=== PATIENT | female | born 1985 | race Caucasian/White ===

== ENCOUNTER 2017-01-01 11:03 | Emergency (ER) | payer MEDICAID ==
[~2017-01-01] VITALS: Wt 56.5 kg
[~2017-01-01 11:03] MED LIST: GLIP-95 PO
[2017-01-01] MEDS ORDERED: HC1C30 TOP (12:05)
[2017-01-01] MEDS ORDERED: BEN25 PO (12:05)
--- NOTE | 2017-01-01 12:12 | ERD ---
ER Documentation Chief Complaint Date/Time DATE: 01/01/17 TIME: 12:10 Chief Complaint RASH ON FACE, NECK, ONSET 2 DAYS, NO SOB HPI 31-year-old female complains of a pruritic rash that is on her face and neck that started 2 days ago. She states that it is localized only, without any shortness of breath or lip swelling. She denies any new foods, medications lotions or creams or rubs. She denies any trouble breathing with this. She did try taking Benadryl yesterday one time. ROS All systems reviewed and are negative except as per history of present illness. Medications Home Meds Active Scripts Hydrocortisone* Topical (Hydrocortisone* Topical) 1%-28.35 Gm Cream..g., 1 APPLIC TOP Q6 Y for ITCHING, #1 TUB Prov:RAJAN KIMBLE PA-C 01/01/17 Diphenhydramine Hcl* (Benadryl*) 25 Mg Cap, 25 MG PO Q6, #30 CAP Prov:RAJAN KIMBLE PA-C 01/01/17 Glipizide* (Glipizide*) 10 Mg Tablet, 10 MG PO AC BREAKFAST for 30 Days, TAB Prov:DIPAK WEIR MD 10/21/14 Allergies Allergies: Coded Allergies: No Known Allergies (Verified Allergy, Unknown, 10/20/14) PMhx/Soc History of Surgery: Yes (C/S x2) Anesthesia Reaction: No Hx Neurological Disorder: No Hx Respiratory Disorders: No Hx Cardiac Disorders: No Hx Psychiatric Problems: No Hx Miscellaneous Medical Probl: No Hx Alcohol Use: No Hx Substance Use: No Hx Tobacco Use: No Smoking Status: Never smoker Physical Exam Vitals Vital Signs Date Time Temp Pulse Resp B/P Pulse Ox O2 Delivery O2 Flow Rate FiO2 01/01/17 11:09 97.8 90 18 129/79 98 Physical Exam General: Well-developed, well-nourished. The patient appears in no acute distress. HEENT: Head is normocephalic, atraumatic. No scleral icterus. Pupils are equal , round, and reactive. Oral mucous membranes are moist. No pharyngeal erythema. No angioedema Neck: Supple. Nontender. Lungs: Clear to auscultation. Normal air movement. Heart: Regular rate and rhythm. S1 and S2 are normal. No murmurs, gallops, or rubs. Abdomen: Nondistended. Extremities: No clubbing or cyanosis. Normal pulses. Moving extremities x 4. No weakness. Neurologic: Alert and oriented 3. No focal deficits. Skin: Slight, superficial erythema, excoriations in the anterior chest, macular rash, no papules, no vesicles. Procedures/MDM 31-year-old female presents with dermatitis, differentials include allergic reaction versus contact dermatitis versus eczema. The localization of the rash , is less concerning, there is no infectious etiology at this time. Patient will be treated for eczema versus contact dermatitis. Departure Diagnosis: Primary Impression: Dermatitis Condition: Good Patient Instructions: Atopic Dermatitis (Eczema) Additional Instructions: Llame al doctor MAANA y yenifer odilia JUANCARLOS PARA DENTRO DE 1-2 JAQUEZ.Dgale a la secretaria que nosotros le instruimos hacer esta juancarlos.Avise o llame si cardenas condicin se empeora antes de la juancarlos. Regresa aqui si peor o no mejor. RAJAN KIMBLE PA-C Jan 01, 2017 12:12
== END 2017-01-01 12:56 | disposition home or self-care (01) ==
LOC: FTE 11:03
DX: L30.9 Dermatitis, unspecified (principal); E11.9 Type 2 diabetes mellitus without complications; Z79.84 Long term (current) use of oral hypoglycemic drugs
CPT/HCPCS: 99283

== ENCOUNTER 2017-08-24 08:54 | Emergency (ER) | payer MEDICAID ==
[~2017-08-24] VITALS: Ht 157.5 cm; Wt 57.4 kg
[~2017-08-24 08:54] MED LIST changes: +BEN25 PO; +HC1C30 TOP
[2017-08-24 08:57] VITALS: Ht 157.5 cm; Wt 57.4 kg
--- NOTE | 2017-08-24 09:41 | ERD ---
ER Documentation Chief Complaint Chief Complaint MID ABD PAIN RADIATING TO BACK X 1 DAY ROS All systems reviewed and are negative except as per history of present illness. Medications Home Meds Active Scripts Hydrocortisone* Topical (Hydrocortisone* Topical) 1%-28.35 Gm Cream..g., 1 APPLIC TOP Q6 Y for ITCHING, #1 TUB Prov:RAJAN KIMBLE PA-C 01/01/17 Diphenhydramine Hcl* (Benadryl*) 25 Mg Cap, 25 MG PO Q6, #30 CAP Prov:RAJAN KIMBLE PA-C 01/01/17 Glipizide* (Glipizide*) 10 Mg Tablet, 10 MG PO AC BREAKFAST for 30 Days, TAB Prov:DIPAK WEIR MD 10/21/14 Allergies Allergies: Coded Allergies: No Known Allergies (Verified Allergy, Unknown, 10/20/14) PMhx/Soc History of Surgery: Yes (C/S x2) Anesthesia Reaction: No Hx Neurological Disorder: No Hx Respiratory Disorders: No Hx Cardiac Disorders: No Hx Psychiatric Problems: No Hx Miscellaneous Medical Probl: No Hx Alcohol Use: No Hx Substance Use: No Hx Tobacco Use: No Physical Exam Vitals Vital Signs Date Time Temp Pulse Resp B/P Pulse Ox O2 Delivery O2 Flow Rate FiO2 08/24/17 08:57 98.5 95 18 120/70 99 Physical Exam Const: [] Head: Atraumatic Eyes: Normal Conjunctiva ENT: Normal External Ears, Nose and Mouth. Neck: Full range of motion..~ No meningismus. Resp: Clear to auscultation bilaterally Cardio: Regular rate and rhythm, no murmurs Abd: Soft, non tender, non distended. Normal bowel sounds Skin: No petechiae or rashes Back: No midline or flank tenderness Ext: No cyanosis, or edema Neur: Awake and alert Psych: Normal Mood and Affect Results 24 hrs Current Medications Medications (Trade) Dose Ordered Sig/Heath Route PRN Reason Start Time Stop Time Status Last Admin Dose Admin Morphine Sulfate (morphine) 4 mg ONCE STAT IV 08/24/17 09:48 08/24/17 09:51 DC Ondansetron HCl (Zofran Inj) 4 mg ONCE STAT IV 08/24/17 09:48 08/24/17 09:51 DC Famotidine (Pepcid) 20 mg ONCE STAT PO 08/24/17 09:48 08/24/17 09:51 DC Departure Condition: Stable BALA DELATORRE MD Aug 24, 2017 09:41
[2017-08-24] MEDS ORDERED: ONDANSETRON 4 MG INJ IV STA (09:48)
[2017-08-24] MEDS ORDERED: FAMOTIDINE 20 MG TAB PO STA (09:48)
[2017-08-24] MEDS ORDERED: morphine 4 MG/ML VIAL IV STA (09:48)
[2017-08-24 10:30] LABS: BASOPHILS % 0.3 % (0.0-2.0); EOSINOPHILS % 0.2 % (0.0-7.0); HEMATOCRIT 39.1 % (37.0-47.0); HEMOGLOBIN 12.8 g/dl (12.0-16.0); LYMPHOCYTES # 1.3 10^3/ul (0.8-2.9); LYMPHOCYTES % 8.2 % (15.0-51.0); MEAN CORPUSCULAR HEMOGLOBIN 25.4 pg (29.0-33.0); MEAN CORPUSCULAR HGB CONC 32.7 g/dl (32.0-37.0); MEAN CORPUSCULAR VOLUME 77.7 fl (82.0-101.0); MEAN PLATELET VOLUME 9.5 fl (7.4-10.4); MONOCYTE # 0.5 10^3/ul (0.3-0.9); MONOCYTES % 3.3 % (0.0-11.0); NEUTROPHILS % 87.5 % (39.0-77.0); PLATELET COUNT 320 10^3/UL (140-415); RED BLOOD COUNT 5.03 10^6/ul (4.20-5.40)
[2017-08-24 10:36] LABS: ADD UMIC YES; UR ASCORBIC ACID NEGATIVE (NEGATIVE); UR BILIRUBIN (Dip) NEGATIVE (NEGATIVE); UR BLOOD (Dip) 3+ mg/dL (NEGATIVE); UR CLARITY CLEAR (CLEAR); UR COLOR YELLOW (YELLOW); UR GLUCOSE (Dip) 2+ mg/dL (NEGATIVE); UR KETONES (Dip) TRACE mg/dL (NEGATIVE); UR LEUKOCYTE ESTERASE (Dip) NEGATIVE Leu/ul (NEGATIVE); UR MUCUS FEW /HPF (NONE SEEN); UR NITRITE (Dip) NEGATIVE (NEGATIVE); UR RBC 0 /HPF (0-5); UR TOTAL PROTEIN (Dip) NEGATIVE (NEGATIVE); UR UROBILINOGEN (Dip) NEGATIVE (NEGATIVE)
[2017-08-24 11:03] LABS: ALBUMIN 4.6 g/dl (3.3-4.9); ALBUMIN/GLOBULIN RATIO 1.31; BILIRUBIN,INDIRECT 0.3 mg/dl (0-1.1); BILIRUBIN,TOTAL 0.3 mg/dl (0.2-1.3); CALCIUM 9.2 mg/dl (8.4-10.2); CREATININE 0.57 mg/dl (0.44-1.00); POTASSIUM 3.9 mmol/L (3.5-5.1); TOTAL PROTEIN 8.1 g/dl (6.1-8.1)
--- NOTE | 2017-08-24 11:08 | RADRPT ---
PROCEDURE: Abdominal ultrasound CLINICAL INDICATION: Right upper quadrant abdominal pain TECHNIQUE: Multiple sagittal oblique and transverse real time images were obtained of the abdomen. COMPARISON: None FINDINGS: The gallbladder is distended with inhomogeneous extensive increased echogenicity consistent with gra alistair debris and likely tiny gallstones. Note however that the gallbladder wall is not thickened measu ring 1.32 mm. No evidence of pericholecystic fluid. The common bile duct is normal limits in size me asuring 4.62 mm. No evidence of intrahepatic biliary ductal dilation. The liver is mildly enlarged w ith a maximal sagittal mention of 15.22 cm. The hepato pedal flow within the portal vein. There is i ncreased liver parenchymal echogenicity consistent with fatty infiltration. No focal hepatic lesions . The right kidney is normal in size configuration without calcified calculi, hydronephrosis or intr a renal mass. Those portions of the pancreas visualized are unremarkable. IMPRESSION: 1. Distended gallbladder with diffuse inhomogeneous echogenicity within the lumen consistent with g ravel, debris and probable tiny gallstones. Negative for gallbladder wall thickening or pericholecys tic fluid. 2. No evidence biliary ductal dilation. 3. Mild hepatomegaly with fatty infiltration. 4. Negative right kidney. RPTAT:AAJJ Physician Patience Date Time Electronically viewed and signed by Physician Patience on 08/24/2017 11:08 /
--- NOTE | 2017-08-24 11:15 | ERD ---
ER Documentation Chief Complaint Chief Complaint MID ABD PAIN RADIATING TO BACK X 1 DAY HPI This is a 32-year-old female who presents emergency department today complaining of abdominal pain that goes around her back that started last night. States she took ibuprofen. States that yesterday she had a little bit of diarrhea. Denies any fevers or chills. States she is nauseated and has vomiting. ROS All systems reviewed and are negative except as per history of present illness. Medications Home Meds Active Scripts Dicyclomine Hcl* (Bentyl*) 10 Mg Capsule, 10 MG PO QID, #20 CAP Prov:NICK LIM PA-C 08/24/17 Ondansetron Hcl* (Zofran*) 4 Mg Tablet, 4 MG PO Q6H for NAUSEA AND/OR VOMITING, #30 TAB Prov:NICK LIM PA-C 08/24/17 Famotidine* (Pepcid*) 20 Mg Tablet, 20 MG PO BID for 10 Days, TAB Prov:NICK LIM PA-C 08/24/17 Naproxen* (Naprosyn*) 500 Mg Tablet, 500 MG PO BID Y for PAIN AND/OR INFLAMMATION, #30 TAB Prov:NICK LIM PA-C 08/24/17 Hydrocodone/Acetaminophen ([place] 5-325 Tablet) 1 Each Tablet, 1 TAB PO Q6H Y for PAIN, #10 TAB Prov:NICK LIM PA-C 08/24/17 Hydrocortisone* Topical (Hydrocortisone* Topical) 1%-28.35 Gm Cream..g., 1 APPLIC TOP Q6 Y for ITCHING, #1 TUB Prov:RAJAN KIMBLE PA-C 01/01/17 Diphenhydramine Hcl* (Benadryl*) 25 Mg Cap, 25 MG PO Q6, #30 CAP Prov:RAJAN KIMBLE PA-C 01/01/17 Glipizide* (Glipizide*) 10 Mg Tablet, 10 MG PO AC BREAKFAST for 30 Days, TAB Prov:DIPAK WEIR MD 10/21/14 Allergies Allergies: Coded Allergies: No Known Allergies (Verified Allergy, Unknown, 10/20/14) PMhx/Soc History of Surgery: Yes (C/S x2) Anesthesia Reaction: No Hx Neurological Disorder: No Hx Respiratory Disorders: No Hx Cardiac Disorders: No Hx Psychiatric Problems: No Hx Miscellaneous Medical Probl: No Hx Alcohol Use: No Hx Substance Use: No Hx Tobacco Use: No Physical Exam Vitals Vital Signs Date Time Temp Pulse Resp B/P Pulse Ox O2 Delivery O2 Flow Rate FiO2 08/24/17 08:57 98.5 95 18 120/70 99 Physical Exam Const: NAD Head: Atraumatic Eyes: Normal Conjunctiva ENT: Normal External Ears, Nose and Mouth. Neck: Full range of motion..~ No meningismus. Resp: Clear to auscultation bilaterally Cardio: Regular rate and rhythm, no murmurs Abd: Soft, epigastric, right upper quadrant, non distended. Normal bowel sounds no lower abdominal pain. No tenderness at McBurney's Skin: No petechiae or rashes Back: No midline or flank tenderness Ext: No cyanosis, or edema Neur: Awake and alert Psych: Normal Mood and Affect Result Diagram: 08/24/17 1012 08/24/17 1012 Results 24 hrs Laboratory Tests Test 08/24/17 10:10 08/24/17 10:12 Urine Color YELLOW Urine Clarity CLEAR Urine pH 5.0 Urine Specific [place] 1.010 Urine Ketones TRACEmg/dL Urine Nitrite NEGATIVEmg/dL Urine Bilirubin NEGATIVEmg/dL Urine Urobilinogen NEGATIVEmg/dL Urine Leukocyte Esterase NEGATIVELeu/ul Urine Microscopic RBC 0/HPF Urine Microscopic WBC 1/HPF Urine Mucus FEW/HPF Urine Hemoglobin 3+mg/dL Urine Glucose 2+mg/dL Urine Total Protein NEGATIVEmg/dl White Blood Count 16.010^3/ul Red Blood Count 5.0310^6/ul Hemoglobin 12.8g/dl Hematocrit 39.1% Mean Corpuscular Volume 77.7fl Mean Corpuscular Hemoglobin 25.4pg Mean Corpuscular Hemoglobin Concent 32.7g/dl Red Cell Distribution Width 13.0% Platelet Count 56116^3/UL Mean Platelet Volume 9.5fl Neutrophils % 87.5% Lymphocytes % 8.2% Monocytes % 3.3% Eosinophils % 0.2% Basophils % 0.3% Nucleated Red Blood Cells % 0.0/100WBC Neutrophils # 14.010^3/ul Lymphocytes # 1.310^3/ul Monocytes # 0.510^3/ul Eosinophils # 0.010^3/ul Basophils # 0.010^3/ul Nucleated Red Blood Cells # 0.010^3/ul Sodium Level 141mmol/L Potassium Level 3.9mmol/L Chloride Level 102mmol/L Carbon Dioxide Level 26mmol/L Anion Gap 17 Blood Urea Nitrogen 10mg/dl Creatinine 0.57mg/dl Glucose Level 234mg/dl Calcium Level 9.2mg/dl Total Bilirubin 0.3mg/dl Direct Bilirubin 0.00mg/dl Indirect Bilirubin 0.3mg/dl Aspartate Amino Transf (AST/SGOT) 22IU/L Alanine Aminotransferase (ALT/SGPT) 23IU/L Alkaline Phosphatase 91IU/L Total Protein 8.1g/dl Albumin 4.6g/dl Globulin 3.50g/dl Albumin/Globulin Ratio 1.31 Lipase 51U/L Current Medications Medications (Trade) Dose Ordered Sig/Heath Route PRN Reason Start Time Stop Time Status Last Admin Dose Admin Morphine Sulfate (morphine) 4 mg ONCE STAT IV 08/24/17 09:48 08/24/17 09:51 DC 08/24/17 10:19 Ondansetron HCl (Zofran Inj) 4 mg ONCE STAT IV 08/24/17 09:48 08/24/17 09:51 DC 08/24/17 10:19 Famotidine (Pepcid) 20 mg ONCE STAT PO 08/24/17 09:48 08/24/17 09:51 DC 08/24/17 10:19 DIAGNOSTIC IMAGING REPORT Patient: MAGGY CREWS : 1985 Age: 32 Sex: F [id number] DOS: 08/24/17 0000 Ordering MD: NICK LIM PA-C Location: [facility] Room/Bed: PROCEDURE: Abdominal ultrasound CLINICAL INDICATION: Right upper quadrant abdominal pain TECHNIQUE: Multiple sagittal oblique and transverse real time images were obtained of the abdomen. COMPARISON: None FINDINGS: The gallbladder is distended with inhomogeneous extensive increased echogenicity consistent with gravel debris and likely tiny gallstones. Note however that the gallbladder wall is not thickened measuring 1.32 mm. No evidence of pericholecystic fluid. The common bile duct is normal limits in size measuring 4.62 mm. No evidence of intrahepatic biliary ductal dilation. The liver is mildly enlarged with a maximal sagittal mention of 15.22 cm. The hepato pedal flow within the portal vein. There is increased liver parenchymal echogenicity consistent with fatty infiltration. No focal hepatic lesions. The right kidney is normal in size configuration without calcified calculi, hydronephrosis or intra renal mass. Those portions of the pancreas visualized are unremarkable. IMPRESSION: 1. Distended gallbladder with diffuse inhomogeneous echogenicity within the lumen consistent with gravel, debris and probable tiny gallstones. Negative for gallbladder wall thickening or pericholecystic fluid. 2. No evidence biliary ductal dilation. 3. Mild hepatomegaly with fatty infiltration. 4. Negative right kidney. RPTAT:AAJJ Physician Patience Date Time Electronically viewed and signed by Isabell Centeno Physician on 08/24/2017 11:08 BM/ CC: NICK LIM PA-C Procedures/[facility] This a 32-year-old female who presents the emergency department today complaining of abdominal pain that radiates around to her back. Patient is afebrile and otherwise well-appearing however on physical exam she has epigastric and right upper quadrant tenderness. Given this I did obtain laboratory workup as well as imaging. laboratory workup shows an elevated white blood cell count of 16. She is not anemic. Platelets are within normal limits. Electrolytes are within normal limits. Bicarb is within normal limits. Glucose is mildly elevated at 234. Liver enzymes are within normal limits. Lipase is within normal limits. UA 2+ glucose. Trace ketones. Negative for infection Urine test is negative Right upper quadrant ultrasound distended gallbladder with diffuse inhomogenous echogenicity within the lumen consistent with gravel debris and probable tiny gallstones. Negative for gallbladder wall thickening or pericholecystic fluid. There is no evidence of biliary ductal dilatation. There is mild hepatomegaly with fatty infiltration. Given IV fluids, morphine Pepcid and Zofran here in the emergency department. She reported that her pain improved and was ready to go home. Symptoms at this time is consistent with biliary colic secondary to gallstones hyperglycemia. Patient is not in DKA.. Patient is afebrile and otherwise well- appearing. There is no evidence to suggest acute cholecystitis. Patient's elevated white blood cell count may be secondary to her diarrhea or vomiting that she has had. Patient was given a prescription for short course of [place], Naprosyn, Zofran, Pepcid, Bentyl for home and she is instructed to follow-up with her primary care doctor for referral to general surgery. I have given the patient a list of resources. Patient did indicate she does have a primary care physician. She was instructed to continue taking her medication for her diabetes as prescribed. At this time the patient is stable for discharge and outpatient management. Patient should follow up with their PCP in the next 1-2 days. They may return to the emergency department sooner for any persistent or worsening of symptoms. Patient understood and agreed with the plan. Discussed the patient with Dr. Langley and he is in agreement with the plan Departure Diagnosis: Primary Impression: Biliary colic Additional Impression: Hyperglycemia Condition: Fair NICK LIM PA-C Aug 24, 2017 11:15
[2017-08-24] MEDS ORDERED: HYDR-906 PO (12:21)
[2017-08-24] MEDS ORDERED: NAPR-260 PO (12:21)
[2017-08-24] MEDS ORDERED: FAMO-96 PO (12:21)
[2017-08-24] MEDS ORDERED: DICY10CA60 PO (12:22)
[2017-08-24] MEDS ORDERED: ONDA4TAB8 PO (12:22)
== END 2017-08-24 12:46 | disposition home or self-care (01) ==
LOC: FTE 08:54
DX: K80.50 Calculus of bile duct without cholangitis or cholecystitis without obstruction (principal); R73.9 Hyperglycemia, unspecified
CPT/HCPCS: 36415; 76705; 80053; 81001; 83690; 85025; 96374; 96375; J2270; J2405; Z7502; Z7610